=== PATIENT | female | born 1955 | race Caucasian/White ===

== ENCOUNTER 2016-12-21 05:54 | Day surgery (SDC) | payer BC ==
--- NOTE | ~2016-12-21 | EGD ---
EGD REPORT [facility] [address] [place] [address] NAME: ELZBIETA STEINER : 53 STATUS : REG [facility]#: [id number] AGE: 61 ADM/REG DATE : 12/21/16 MR#: [id number] REPORT SERV DATE: 12/21/16 DICTATED BY: KIARA TRAYLOR DATE: 12/21/16 REPORT STATUS : Draft TRANSCRIBED BY: [facility] DATE: 12/21/16 Endoscopy Center Patient Name: Elzbieta Steiner Date of : 1955 Attending MD: KIARA TRAYLOR MD Procedure Date No Time: 12/21/2016 Procedure: Colonoscopy Indications: FH of Colon Cancer -distant relative Referring MD: LATOSHA BLISS MD Medicines: as per anesthesia Complications: No immediate complications. Procedure: Pre-Anesthesia Assessment: - ASA Grade Assessment: I - A normal, healthy patient. - ASA Grade Assessment: I - A normal, healthy patient. After I obtained informed consent, the scope was passed under direct vision. Throughout the procedure, the patient's blood pressure, pulse, and oxygen saturations were monitored continuously. The [facility] [id number] was introduced through the anus and advanced to the cecum, identified by appendiceal orifice and ileocecal valve. The colonoscopy was somewhat difficult due to significant looping and a tortuous colon. The patient tolerated the procedure. The quality of the bowel preparation was adequate to identify polyps. Findings: The perianal and digital rectal examinations were normal. Internal hemorrhoids were found during endoscopy and were mild. Impression: - Internal hemorrhoids. Recommendation: - Repeat colonoscopy in 5 years for surveillance. Procedure Code(s): --- Professional --- 24660, Colonoscopy, flexible, proximal to splenic flexure; diagnostic, with or without collection of specimen(s) by brushing or washing, with or without colon decompression (separate procedure) Diagnosis Code(s): --- Professional --- K64.8, Other hemorrhoids Z80.0, Family history of malignant neoplasm of digestive organs EGD REPORT [facility] [address] [address] NAME: ELZBIETA STEINER : 53 STATUS : REG [facility]#: [id number] AGE: 61 ADM/REG DATE : 12/21/16 MR#: [id number] REPORT SERV DATE: 12/21/16 DICTATED BY: KIARA TRAYLOR. DATE: 12/21/16 REPORT STATUS : Draft TRANSCRIBED BY: [employer] SERVICES DATE: 12/21/16 CPT copyright 2013 [employer]. All rights reserved. The codes documented in this report are preliminary and upon magazine filler review may be revised to meet current compliance requirements. KIARA TRAYLOR MD 12/21/2016 8:10 AM This report has been signed electronically. Number of Addenda: 0 Note Initiated On: 12/21/2016 7:13 AM Scope Withdrawal Time 0 hours 9 minutes 0 seconds [address] [address]
== END 2016-12-21 23:59 | disposition home or self-care (01) ==
LOC: DMU 05:54
PROVIDERS: Internal Medicine Gastroenterology
PROC: 0DJD8ZZ Inspection of Lower Intestinal Tract, Via Natural or Artificial Opening Endoscopic (ICD-10-PCS; principal; 2016-12-21 07:30)
DX: K64.8 Other hemorrhoids (principal); M85.80 Other specified disorders of bone density and structure, unspecified site; Z80.0 Family history of malignant neoplasm of digestive organs; Z90.89 Acquired absence of other organs; Z78.0 Asymptomatic menopausal state; Z87.891 Personal history of nicotine dependence